=== PATIENT | male | born 1985 | race Caucasian/White ===

== ENCOUNTER → 2018-05-14 18:56 | Outpatient (CLI) | payer OTHER, SELFPAY ==
[2018-05-14 19:29] LABS: Influenza A and B by PCR Rapid Negative (Negative)
== END ==
PROVIDERS: PCP Family Medicine; Visit Provider Physician Assistant
DX: J02.9 Acute pharyngitis, unspecified (principal); R52 Pain, unspecified
CPT/HCPCS: 87400

== ENCOUNTER → 2019-03-22 14:13 | Outpatient (CLI) | payer OTHER, SELFPAY ==
--- NOTE | 2019-03-22 14:15 | DI.RAD.S_ITS ---
PROCEDURE: XR ANKLE RT MIN 3V INDICATIONS: rolled ankle, pain to 1st and 5th metatarsals, r/o fracture TECHNIQUE: 3 views of the ankle were acquired. COMPARISON: None. FINDINGS: Bones: No fractures or dislocations. Ankle mortise is normally aligned. No suspicious bony lesions. Soft tissues: No tibiotalar joint effusion. Achilles tendon appears normal. IMPRESSION: No fracture. If the patient's pain or other symptoms persist, consider further evaluation with MRI Dictated by: Demetris Chiu M.D. on 03/22/2019 at 14:45 Approved by: Demetris Chiu M.D. on 03/22/2019 at 14:46
--- NOTE | 2019-03-22 14:15 | DI.RAD.S_ITS ---
PROCEDURE: XR FOOT RT MIN 3V INDICATIONS: pain to 1st and 5th metatarsals, r/o fracture TECHNIQUE: 3 views of the foot were acquired. COMPARISON: None. FINDINGS: Bones: No fractures or dislocations. No suspicious bony lesions. Unfused accessory navicular. Os peroneum incidentally noted. Mild first MTP degeneration. Soft tissues: No tibiotalar joint effusion. Achilles tendon appears normal. IMPRESSION: No fracture. If the patient's symptoms do not improve recommend followup radiographs in 10 days to assess for healing sclerosis/occult injury. Dictated by: Demetris Chiu M.D. on 03/22/2019 at 14:43 Approved by: Demetris Chiu M.D. on 03/22/2019 at 14:45
== END ==
PROVIDERS: Family Provider Family Medicine; PCP Family Medicine; Visit Provider Physician Assistant
DX: M79.671 Pain in right foot (principal); S99.911A Unspecified injury of right ankle, initial encounter; X58.XXXA Exposure to other specified factors, initial encounter
CPT/HCPCS: 73610; 73630